=== PATIENT | male | born 1945 | race Caucasian/White ===

== ENCOUNTER → 2018-01-12 | Outpatient (CLI) | payer BC ==
[~2018-01-12] VITALS: Ht 193 cm; Wt 99.8 kg
[~2018-01-12] MED LIST: ALLOPURINOL 10100 M1 PO; COZAAR 50 MG TA50 M2 PO; CRESTOR10 MG PO; KLOR-CON 1010 MEQ PO; LEXAPRO 10 MG T10 M1 PO
[2018-01-12 07:50] VITALS: BP 143/80
[2018-01-12 08:31] LABS: HEMATOCRIT 44.6 % (42.0-52.0); MCH 32.6 pg (26.0-34.0); MCHC 33.6 g/dL (28.0-37.0); MPV 8.8 fl. (7.2-11.1); RBC 4.6 mil/uL (4.50-6.00); RDW-CV 13.5 % (10.5-14.5)
[2018-01-12 08:38] LABS: ANION GAP 9 mmol/L (7-16); APTT 27.9 Seconds (25.0-31.3); BUN 23 mg/dL (7-18); CALCIUM 9.3 mg/dL (8.5-10.1); CHLORIDE 102 mmol/L (98-107); CO2 29 mmol/L (21-32); GLUCOSE 101 mg/dL (70-99); INR 1.1; POTASSIUM 3.5 mmol/L (3.5-5.1); PROTIME 10.4 Seconds (9.20-11.50); SODIUM 140 mmol/L (136-145)
[2018-01-12 08:43] LABS: ALBUMIN 4.1 g/dL (3.4-5.0); ALKALINE PHOSPHATASE 72 U/L (46-116); CHOLESTEROL 172 mg/dL (<200); HDL CHOLESTEROL 58 mg/dL (>40); LDL CHOLESTEROL 89 mg/dL (<100); SGOT 96 U/L (15-37); SGPT 90 U/L (30-65); TOTAL PROTEIN 7.9 g/dL (6.4-8.2); TRIGLYCERIDE 125 mg/dL (<150); VLDL 25 mg/dL (<40)
[2018-01-12 08:47] LABS: SERUM ASSESSMENT Clear
[2018-01-12 11:08] VITALS: BP 145/78
--- NOTE | 2018-01-12 11:09 | EKG ---
[place] [address] ELECTROCARDIOGRAM REPORT Name: JULISSALISETH Room: [facility]#: [id number] Admission: 01/12/18 Attend Phys: Enrique Christy MD Discharge: Date of : 43 Report #: [id number] THIS REPORT FOR: //name// [facility] Test Date: 2018-01-12 Test Time: 07:55:54 Pat Name: LISETH COSTA Department: Room: Gender: M Multimedia Programmer: : 1945 Requested By: Enrique Christy Order Number: [id number] Reading MD: Enrique Christy Measurements Intervals [place] Rate: 74 P: 31 MT: 158 QRS: -51 QRSD: 151 T: -20 QT: 435 QTc: 483 Interpretive Statements 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
[2018-01-12 11:32] VITALS: BP 106/64
[2018-01-12 11:50] VITALS: BP 107/74
[2018-01-12 12:35] VITALS: BP 131/68
--- NOTE | 2018-01-12 12:56 | 2DMMODE ---
[place] [address] 2 D/M-MODE ECHOCARDIOGRAM Name: LISETH COSTA Room: [facility]#: [id number] Admission: 01/12/18 Attend Phys: Enrique Christy, Discharge: Date of : 43 Date of Service: 01/12/18 1256 Report #: [id number] THIS REPORT FOR: //name// ADDENDUM APPROVED REPORT Study performed: 01/12/2018 11:36:41 EXAM: Limited 2D, Doppler, and color-flow Echocardiogram with contrast Patient Location: Out-Patient Status: routine BSA: 2.31 HR: 67 bpm BP: 106/64 mmHg Rhythm: NSR Other Information Study Quality: Good Indications Murmur 2D Dimensions LVOT Diam: 22.24 (18-24mm) Aortic Valve AoV Peak Santosh.: 2.79 m/s AO Peak Gr.: 31.13 mmHg LVOT Max P.69 mmHg AO Mean Gr.: 18.41 mmHg LVOT Mean P.41 mmHg LVOT Max V: 1.29 m/s AO V2 VTI: 59.90 cm LVOT Mean V: 0.85 m/s LAVINIA (VTI): 1.98 cm2 LVOT V1 VTI: 30.45 cm Left Ventricle The left ventricle is normal size. There is normal LV segmental wall motion. Mild to moderate concentric left ventricular hypertrophy. Left ventricular systolic function is normal. The left ventricular ejection fraction is within the normal range. LVEF is 60-65%. Right Ventricle The right ventricle is normal size. The right ventricular systolic function is normal. Atria The left atrium size is normal. The right atrium size is [facility] [address] [place] [address] 2 D/M-MODE ECHOCARDIOGRAM Name: LISETH COSTA Room: [facility]#: [id number] Admission: 01/12/18 Attend Phys: Enrique Christy, Discharge: Date of : 43 Date of Service: 01/12/18 1256 Report #: [id number] normal. Aortic Valve Mild aortic valve sclerosis. mild aortic regurgitation is present. Mild aortic stenosis.Mean gradient 20mmHg. Mitral Valve There is mitral annular calcification. Tricuspid Valve The tricuspid valve is normal in structure. There is no tricuspid valve regurgitation noted. Pulmonic Valve Pulmonic valve is not well visualized. Great Vessels The aortic root is normal in size. Pericardium There is no pericardial effusion. <Conclusion> LVEF is 60-65%. Mild to moderate concentric left ventricular hypertrophy. There is normal LV segmental wall motion. Mild aortic stenosis.Mean gradient 20mmHg. mild aortic regurgitation is present. <ELECTRONICALLY SIGNED> By: Enrique Christy MD, FAC 01/12/18 1256 1256 1256 Enrique Christy MD, FAC /INF
--- NOTE | 2018-01-13 08:46 | CARD ---
[address] [address] CARDIAC CATH REPORT Name: LISETH COSTA Sridhar Room: [facility]#: [id number] Admission: 01/12/18 Attend Phys: Enrique Christy MD Discharge: Date of : 43 Report #: [id number] THIS REPORT FOR: //name// APPROVED REPORT Study performed: 01/12/2018 07:46:11 Patient Details Patient Status: Out-Patient Room #: The patient is a 72 year-old male Event Personnel Enrique Christy Facsimile Machine Operator, Ирина Patten RN Building Services Coordinator, Lselie Teixeira RTR ScrubSandy Jessica RTR Monitor, Fran Fitzgerald ARRKlever (R) Monitor Procedures Performed Art Access - R radial artery Left Heart Cath w/or w/o Coronaries [id number] [facility] Procedure Narrative The patient was brought electively to the Cardiac Catheterization Laboratory and was prepped and draped in a sterile manner. The right wrist was infiltrated with 2% Lidocaine subcutaneous anesthesia. A Slender Glidesheath sheath was inserted into the right radial artery. Coronary angiography was performed using coronary diagnostic catheters. The right coronary system was accessed and visualized with a 6FR TIG catheter. The left coronary system was accessed and visualized with a 6 FR TIG catheter. The left ventricle was accessed and visualized with a 6 FR ANGLED PIGTAIL catheter. Left ventricular/Aortic Valve gradient assessed . Hemostasis was obtained with manual pressure following sheath removal without any complications. The patient tolerated the procedure well and there were no complications associated with the procedure. There was no hematoma. Intraoperative Conscious Sedation Sedation start time: 10:20 Case end Time: 10:48 Fentanyl 50 mcg Versed 2 mg Fluoro Time: 13.5 minutes Dose: DAP [id number] cGycm2 1725 mGy Contrast Type and Amount: Omnipaque [address] [place] [address] CARDIAC CATH REPORT Name: LISETH COSTA Room: [facility]#: [id number] Admission: 01/12/18 Attend Phys: Enrique Christy MD Discharge: Date of : 43 Report #: [id number] Coronary Angiography The patient's coronary anatomy is right dominant. Diagnostic Cath Left Main normal LAD mid 40% Diagonal 1 normal Diagonal 2 normal Circumflex normal OM1 large, proximal 60-70 OM2 small Right Coronary normal R PDA diffuse 30% Ramus large normal Left Ventriculography The left ventricle is normal in size with normal contractility. The left ventricular ejection fraction is estimated to be 60-65%. aortic valve peak gradient 25mmHg EDP 5 Hemodynamics The aortic pressure is 86/57 mmHg with a mean of 71 mmHg. The left ventricular pressure is 129/-8 mmHg with a mean of mmHg. The left ventricular end diastolic pressure is -1 mmHg. Pullback from the left ventricle to the aorta revealed no gradient across the aortic valve. Conclusion 1.mild CAD 2. normal LV systolic function 3. mild to moderate Aortic stenosis Recommendations Aggressive Medical Therapy <ELECTRONICALLY SIGNED> By: Enrique Christy MD, FACC 01/13/18845 5 Enrique Christy MD, FACC /INF
== END | disposition home or self-care (01) ==
LOC: M.CL 01-07 09:00
PROVIDERS: Internal Medicine Cardiovascular Disease
DX: I25.10 Atherosclerotic heart disease of native coronary artery without angina pectoris (principal); I35.2 Nonrheumatic aortic (valve) stenosis with insufficiency; M10.9 Gout, unspecified; I11.0 Hypertensive heart disease with heart failure; I50.1 Left ventricular failure, unspecified; E78.5 Hyperlipidemia, unspecified; G47.33 Obstructive sleep apnea (adult) (pediatric); Z98.890 Other specified postprocedural states; Z79.899 Other long term (current) drug therapy; Z87.442 Personal history of urinary calculi; Z79.01 Long term (current) use of anticoagulants

== ENCOUNTER → 2018-02-02 | Outpatient (CLI) | payer BC ==
--- NOTE | 2018-02-19 11:13 | PF ---
[address] [address] PULMONARY FUNCTION REPORT Name: LISETH COSTA Room: [facility]#: [id number] Admission: 02/02/18 Attend Phys: Enrique Christy MD Discharge: Date of : 43 Report #: [id number] THIS REPORT FOR: //name// CC: Stephy Christy REFERRING PHYSICIAN: Enrique Christy MD [facility]. INTERPRETATION: Expiratory flow rates reveals a FEV1 of 3.52, which is 96% of the predicted value. Forced vital capacity 4.67, 93% of predicted value. FEV1/FVC ratio of 75. The mid flows were in the normal range as well. The lung volumes were not performed. IMPRESSION: Spirometry is essentially normal with no significant impairment. No evidence of airflow obstruction. Although the flow volume loop shows slight curvature of the distal portion suggestive of minimal airflow obstruction. <ELECTRONICALLY SIGNED> By: Connor Taylor MD 02/19/18 1113 1103 1226Alkavitha Taylor MD /nt
== END ==
LOC: M.PUL 09:44
DX: R06.02 Shortness of breath (principal)

== ENCOUNTER → 2020-04-17 | Outpatient (CLI) | payer BC ==
[2020-04-17 10:56] LABS: ABSOLUTE BASOPHILS 0.1 thou/uL (0.0-0.2); ABSOLUTE EOSINOPHILS 0.1 thou/uL (0.0-0.7); ABSOLUTE LYMPHOCYTES 1.6 thou/uL (0.8-5.3); ABSOLUTE MONOCYTES 0.4 thou/uL (0.0-1.2); ABSOLUTE NEUTROPHILS 5.4 thou/uL (1.6-8.1); BASOPHILS 0.9 %; EOSINOPHILS 0.9 %; HEMATOCRIT 43.9 % (42.0-52.0); HEMOGLOBIN 14.9 gm/dL (14.0-18.0); LYMPHOCYTES 21.5 %; MCH 33.2 pg (26.0-34.0); MCV 97.7 fL (80.0-100.0); MONOCYTES 5.7 %; NUCLEATED RBCS 0 /100WBC; PLATELET COUNT* 185 thou/uL (150-400); RBC 4.49 mil/uL (4.50-6.00); RDW-CV 13.9 % (10.5-14.5); WBC 7.6 thou/uL (4.0-11.0)
[2020-04-17 11:22] LABS: ALBUMIN 3.9 g/dL (3.4-5.0); CALCIUM 8.5 mg/dL (8.5-10.1); POTASSIUM 3.6 mmol/L (3.5-5.1); TOTAL BILIRUBIN 0.8 mg/dL (<0.1-1.0); TOTAL PROTEIN 7.4 g/dL (6.4-8.2)
--- NOTE | 2020-04-17 15:52 | CARDNUC ---
[place] [address] CARDIAC NUCLEAR IMAGING REPORT Name: LISETH COSTA Room: [facility]#: [id number] Admission: 04/17/20 Attend Phys: Nicola Braswell, Discharge: Date of : 43 Date of Service: 04/17/20 1552 Report #: [id number] THIS REPORT FOR: cc: Stephy Lopez MD, Emily G. MD Liston, Michael J. MD [facility] ~ APPROVED REPORT Study performed: 04/17/2020 09:41:12 Indication: Dyspnea, ABN EKG, increased fatigue/malaise. Patient Location: Out-Patient Stress Tech: Henrietta Muller Stress Nurse: Demetria Myers RN Ht: 6 ft 1 in Wt: 204 lbs BSA: 2.17 m2 BMI: 26.91 Medical History Medical History: Dyspnea, ABN EKG, ASHD, increased fatigue/malaise, heart valve stenosis, CAD, HTN, HLD, Leg numbness/weakness, poor coordination, neuropathy, unstable gait. Medications: Losartan, K-Dur, Rosuvastatin. Allergies: Atorvastatin. Cardiac Risk Factors: Age, HTN, Hyperlipidemia, SOB, ASHD, heart valve stenosis. Previous Cardiac Procedures: None Pretest Chest Pain Characteristics: No chest pain Exercise History: Sedentary Physical Disabilities: Neuropathy/leg numbness/weakness, poor coordination, drop foot, unstable gait. Meds Held (24 hrs): None Resting Data Rest SPECT myocardial perfusion imaging was performed in supine position 30 minutes following the intravenous injection of 10.0 mCi of Tc-99m Sestamibi. Time of rest injection: 07:55 Administration Route: IV Administration Site: Right AC Pharmacologic Stress Pharmacologic stress test was performed by injecting Regadenoson 0.4 mg IV push over 10-15 seconds immediately [place] [address] CARDIAC NUCLEAR IMAGING REPORT Name: LISETH COSTA Room: [facility]#: [id number] Admission: 04/17/20 Attend Phys: Nicola Braswell, Discharge: Date of : 43 Date of Service: 04/17/20 1552 Report #: [id number] injection of 33.6 mCi of Tc-99m Sestamibi. Time of stress injection: 09:25 Administration Route: IV Administration Site: Right AC Heart Rate at time of stress injection: 71 bpm. Gated Stress SPECT was performed 40 minutes after stress injection. The images were gated to evaluate regional wall motion and calculate left ventricular ejection fraction. Prone imaging was performed. Stress Test Details Stress Test: Pharmacologic stress testing performed using 0.4 mg of regadenoson per 5 mL given IV over 10 seconds. Reason for pharmacologic stress test: Neuropathy/leg numbness/weakness, poor coordination, drop foot, unstable gait.. HR Max Heart Rate (APMHR): 145 bpm Resting HR: 65 bpm Target HR (85% APMHR): 123 bpm Max HR Achieved: 71 bpm % of APMHR: 48 Recovery HR: 69 bpm BP Resting BP: 158/98 mmHg Max BP: 197/111 mmHg Recovery BP: 171/105 mmHg ECG Resting ECG: Sinus Rhythm, RBBB Stress ECG: Sinus Rhythm, RBBB ST Change: None Arrhythmia: None Recovery ECG: Sinus Rhythm, RBBB Recovery ST Change: None Recovery Arrhythmia: None Clinical Reason for Termination: Completed protocol. Stress Symptoms: Lightheadedness, mild dyspnea. Exercise duration: 00 min 00 sec Exercise capacity: 1.00 METs The patient tolerated Lexiscan without significant cardiac symptoms[place] [address] CARDIAC NUCLEAR IMAGING REPORT Name: LISETH COSTA Room: [facility]#: [id number] Admission: 04/17/20 Attend Phys: Nicola Braswell, Discharge: Date of : 43 Date of Service: 04/17/20 1552 Report #: [id number] A 74 year old male presented for a sitting Lexiscan r/t increased dyspnea, ABN EKG, increased fatigue/malaise. Test well tolerated. Recovery unremarkable. Patient was stable and stated he felt good when escorted to Nuclear Medicine for imaging. Stress ECG Conclusion Baseline twelve-lead EKG shows sinus rhythm with right bundle branch block. There were no significant ST segment abnormalities. EKGs obtained during and post Lexiscan infusion shows sinus rhythm with no significant ST segment changes when compared to baseline. Study Quality Study: Good Artifact: No artifact Study Data At rest, the left ventricular ejection fraction was 62%.. Post stress, the left ventricular ejection was 73%.. TID = 0.82. Perfusion Perfusion images obtained at rest and post Lexiscan stress showed uniform uptake of the radioisotope throughout the myocardium. Wall Motion Normal left ventricular wall motion. Nuclear Conclusion ECG Findings: negative for ischemia Clinical Findings: negative for ischemia Nuclear Findings: negative for ischemia Exercise Capacity: not assessed Left Ventricular Function: normal Risk Study: low Myocardial perfusion images show no defect to suggest infarct or ischemia. Left ventricular systolic function appears normal on gated studies. This is a low risk study. <Conclusion> Baseline twelve-lead EKG shows sinus rhythm with right bundle branch block. There were no significant ST segment [place] [address] CARDIAC NUCLEAR IMAGING REPORT Name: JULISSALISETH RAMIREZ Sridhar Room: [facility]#: [id number] Admission: 04/17/20 Attend Phys: Nicola Braswell, Discharge: Date of : 43 Date of Service: 04/17/20 1552 Report #: [id number] obtained during and post Lexiscan infusion shows sinus rhythm with no significant ST segment changes when compared to baseline. <ELECTRONICALLY SIGNED> By: Bruno Singletary MD, FACC 04/17/201551 51 51 Bruno Singletary MD, FACC /INF
== END ==
LOC: M.NUC 07:37
PROVIDERS: ATTEND Internal Medicine
DX: R94.31 Abnormal electrocardiogram [ECG] [EKG] (principal); I11.9 Hypertensive heart disease without heart failure; I25.10 Atherosclerotic heart disease of native coronary artery without angina pectoris; R06.09 Other forms of dyspnea; E78.5 Hyperlipidemia, unspecified; R26.9 Unspecified abnormalities of gait and mobility; G62.9 Polyneuropathy, unspecified

== ENCOUNTER → 2020-07-24 | Outpatient (CLI) | payer BC ==
[2020-07-24 12:26] LABS: ABSOLUTE BASOPHILS 0.1 thou/uL (0.0-0.2); ABSOLUTE EOSINOPHILS 0.1 thou/uL (0.0-0.7); ABSOLUTE LYMPHOCYTES 1.7 thou/uL (0.8-5.3); ABSOLUTE MONOCYTES 0.6 thou/uL (0.0-1.2); ABSOLUTE NEUTROPHILS 6.9 thou/uL (1.6-8.1); BASOPHILS 1.1 %; EOSINOPHILS 0.6 %; HEMATOCRIT 44.1 % (42.0-52.0); HEMOGLOBIN 15.1 gm/dL (14.0-18.0); MCH 32.7 pg (26.0-34.0); MCHC 34.3 g/dL (28.0-37.0); MCV 95.2 fL (80.0-100.0); MONOCYTES 6.5 %; MPV 7.9 fl. (7.2-11.1); NUCLEATED RBCS 0 /100WBC; PLATELET COUNT* 177 thou/uL (150-400); POLYS 73.8 %; RBC 4.63 mil/uL (4.50-6.00); RDW-CV 13.2 % (10.5-14.5); WBC 9.3 thou/uL (4.0-11.0)
[2020-07-24 12:46] LABS: ALBUMIN 3.9 g/dL (3.4-5.0); CALCIUM 9.3 mg/dL (8.5-10.1); CREATININE 1.6 mg/dL (0.6-1.3); POTASSIUM 3.6 mmol/L (3.5-5.1); TOTAL PROTEIN 7.5 g/dL (6.4-8.2)
== END ==
LOC: M.RAD 12:04 → M.LAB 12:04
PROVIDERS: ATTEND Internal Medicine
DX: I25.10 Atherosclerotic heart disease of native coronary artery without angina pectoris (principal); R53.83 Other fatigue

== ENCOUNTER → 2020-08-02 | Outpatient (CLI) | payer BC ==
[2020-08-02 10:17] LABS: CALCIUM 9.2 mg/dL (8.5-10.1); CREATININE 1.3 mg/dL (0.6-1.3)
== END ==
LOC: M.LAB 09:36
PROVIDERS: ATTEND Internal Medicine
DX: I35.0 Nonrheumatic aortic (valve) stenosis (principal); I10 Essential (primary) hypertension; I25.10 Atherosclerotic heart disease of native coronary artery without angina pectoris

== ENCOUNTER → 2020-09-11 | Outpatient (CLI) | payer BC ==
--- NOTE | 2020-09-11 17:06 | EXE ---
[place] [address] STRESS ECHOCARDIOGRAM Name: LISETH COSTA Room: [facility]#: [id number] Admission: 09/11/20 Attend Phys: CapoAngeline SuCamron French, Discharge: Date of : 43 Date of Service: 09/11/20 1706 Report #: [id number] THIS REPORT FOR: cc: Stephy Lopez MD, Emily G. MD Liston, Michael J. MD [facility] ~ APPROVED REPORT Study performed: 09/11/2020 14:57:18 Exam: Dobutamine Stress Echo Indication: Dyspnea, Abnormal EKG Patient Location: Out-Patient Stress Nurse: Demetria Myers RN Supervising Physician: Bruno Singletary MD Ht: 6 ft 4 in HR: 60 bpm BP: 160/92 mmHg Medical History Cardiac Risk Factors: Age, , Hyperlipidemia, HTN, Tobacco History (Former), FHX of CAD Procedure The patient underwent a Pharmacological Stress Test using Dobutamine. Blood pressure, heart rate, and EKG were monitored. An Echocardiogram was performed by door technician in four stages in quad fashion. At peak stress, four selected images were obtained and placed side by side with resting images for comparison. Stress Test Details Stress Test: Pharmacological Stress Test using Dobutamine. Reason for pharmacologic stress test: physical limitation. HR Resting HR: 60 bpm Max Heart Rate (APMHR): 145 bpm Max HR Achieved: 130 bpm Target HR (85% APMHR): 123 bpm % of APMHR: 89 Recovery HR: 90 bpm HR response to stress: Normal HR response to stress BP Resting BP: 160/92 mmHg Max BP: 206/97 [place] [address] STRESS ECHOCARDIOGRAM Name: JULISSALISETH RAMIREZ Sridhar Room: [facility]#: [id number] Admission: 09/11/20 Attend Phys: Nicola Braswell, Discharge: Date of : 43 Date of Service: 09/11/20 1706 Report #: [id number] Recovery BP: 151/81 mmHg BP response to stress: Normal blood pressure response to stress. ECG Resting ECG: Sinus Rhythm, RBBB Stress ECG: Sinus tachycardia, right bundle branch block ST Change: Upsloping ST depression Maximum ST Deviation: 2 mm Arrhythmia: VPC's Recovery ECG: Sinus Rhythm, RBBB Recovery ST Change: Upsloping ST depression Recovery ST Deviation: 2 mm Recovery Arrhythmia: VPC's Clinical Reason for Termination: Completed protocol The patient had no significant cardiac symptoms with dobutamine infusion. Stress ECG Conclusion The baseline twelve-lead EKG shows sinus rhythm with right bundle branch block without significant ST segment abnormality. EKGs obtained during and post dobutamine infusion shows sinus rhythm and sinus tachycardia with [address] segment depression in the anterolateral leads. The patient had frequent unifocal premature ventricular contractions. Pre-Stress Echo The resting Echocardiogram showed normal left ventricular contractility with an estimated Ejection Fraction of about >70%. The resting echocardiogram demonstrated normal wall motion in all wall segments. Post-Stress Echo The stress Echocardiogram showed Vigorous left ventricular contractility with an estimated Ejection Fraction of about 90% plus%. Clinical No clinical or ECG evidence for ischemia. Conclusion Clinical Response: Non-ischemic Stress ECG Response: Non-ischemic Stress Echo Images: [place] [address] STRESS ECHOCARDIOGRAM Name: JULISSALISETH Sridhar Room: [facility]#: [id number] Admission: 09/11/20 Attend Phys: Nicola Braswell, Discharge: Date of : 43 Date of Service: 09/11/201705 Report #: [id number] Other Information Study Quality: Good <ELECTRONICALLY SIGNED> By: Bruno Singletary MD, FACC 09/11/201705 05 05 Bruno Singletary MD, FACC /INF
== END ==
LOC: M.CRD 14:27
PROVIDERS: ATTEND Internal Medicine
DX: I25.10 Atherosclerotic heart disease of native coronary artery without angina pectoris (principal); I35.0 Nonrheumatic aortic (valve) stenosis

== ENCOUNTER → 2020-09-18 | Outpatient (CLI) | payer BC ==
--- NOTE | 2020-09-18 18:55 | EXE ---
[place] [address] STRESS ECHOCARDIOGRAM Name: LISETH COSTA Room: [facility]#: [id number] Admission: 09/18/20 Attend Phys: CapoAngeline Braswell, Discharge: Date of : 43 Date of Service: 09/18/20 1855 Report #: [id number] THIS REPORT FOR: cc: Stephy Lopez MD, Emily G. MD Liston, Michael J. MD [facility] ~ APPROVED REPORT Study performed: 09/18/2020 15:05:46 Exam: Dobutamine Stress Echo Indication: Dyspnea Patient Location: Out-Patient Stress Nurse: Demetria Myers RN Supervising Physician: Bruno Singletary MD Ht: 6 ft 2 in HR: 66 bpm BP: 146/86 mmHg Medical History Medical History: CAD Allergies: No known drug allergies Cardiac Risk Factors: Age, , Hyperlipidemia, HTN, Tobacco History (Former), FHX of CAD Procedure The patient underwent a Pharmacological Stress Test using Dobutamine. Blood pressure, heart rate, and EKG were monitored. An Echocardiogram was performed by technician preventative medicine in four stages in quad fashion. At peak stress, four selected images were obtained and placed side by side with resting images for comparison. Stress Test Details Stress Test: Pharmacological Stress Test using Dobutamine. Reason for pharmacologic stress test: physical limitation. HR Resting HR: 66 bpm Max Heart Rate (APMHR): 145 bpm Max HR Achieved: 138 bpm Target HR (85% APMHR): 123 bpm % of APMHR: 95 Recovery HR: 86 bpm HR response to stress: Normal [place] [address] STRESS ECHOCARDIOGRAM Name: LISETH COSTA Room: [facility]#: [id number] Admission: 09/18/20 Attend Phys: Nicola Braswell, Discharge: Date of : 43 Date of Service: 09/18/20 1855 Report #: [id number] Resting BP: 146/86 mmHg Max BP: 180/83 mmHg Recovery BP: 141/72 mmHg BP response to stress: Normal blood pressure response to stress. ECG Resting ECG: Sinus Rhythm, RBBB Stress ECG: Sinus Tachycardia, RBBB ST Change: None Arrhythmia: VPC's Recovery ECG: Sinus Rhythm, RBBB Recovery ST Change: None Recovery Arrhythmia: VPC's Clinical Reason for Termination: Completed protocol The patient tolerated dobutamine infusion to target heart rate with no specific cardiac complaint. Stress ECG Conclusion Baseline twelve-lead EKG shows sinus rhythm with right bundle branch block. EKGs obtained during and post dobutamine infusion show sinus rhythm and sinus tachycardia with no significant ST segment changes when compared to baseline. Patient had occasional unifocal premature ventricular contractions during and post dobutamine infusion. Pre-Stress Echo The resting Echocardiogram showed normal left ventricular contractility with an estimated Ejection Fraction of about 60-65%. The resting echocardiogram demonstrated normal wall motion in all wall segments. Post-Stress Echo The stress Echocardiogram showed normal left ventricular contractility with an estimated Ejection Fraction of about >70%. Compared to rest, there were no stress-induced wall motion abnormalities. Clinical 1. The resting mean gradients across the aortic valve was 21.5 mmHg with a peak gradient of 33.3 mmHg. 2. At low-dose dobutamine the mean gradient across the aortic valve was 40.7 mmHg with a peak gradient of 68.0 mmHg. 3. At peak dobutamine infusion the mean gradient across the aortic valve was 52.3 mmHg with a peak gradient of 90.0 [place] [address] STRESS ECHOCARDIOGRAM Name: LISETH COSTA Room: [facility]#: [id number] Admission: 09/18/20 Attend Phys: Nicola Braswell, Discharge: Date of : 43 Date of Service: 09/18/20 1855 Report #: [id number]. Conclusion Clinical Response: Non-ischemic Stress ECG Response: Non-ischemic Stress Echo Images: Non-ischemic 1. This dobutamine stress echocardiogram showed no EKG or echo evidence to suggest stress-induced ischemia. 2. Significant increase in the flow gradient across the aortic valve with dobutamine infusion as outlined above. Other Information Study Quality: Good <Conclusion> 1. This dobutamine stress echocardiogram showed no EKG or echo evidence to suggest stress-induced ischemia. 2. Significant increase in the flow gradient across the aortic valve with dobutamine infusion as outlined above. <ELECTRONICALLY SIGNED> By: Bruno Singletary MD, FACC 09/18/201854 54 54 Bruno Singletary MD, FACC /INF
== END ==
LOC: M.CRD 14:18
PROVIDERS: ATTEND Internal Medicine
DX: I35.0 Nonrheumatic aortic (valve) stenosis (principal); I25.10 Atherosclerotic heart disease of native coronary artery without angina pectoris